=== PATIENT | female | born 1965 | race African-American/Black ===

== ENCOUNTER → 2016-11-23 | Outpatient (CLI) | payer BC ==
[~2016-11-23] MED LIST: BUSP15TA PO; CALC-53 PO; HYDR12.53 PO; IOHEXOL 240 MG/ML 50ML VIAL. PO ONE; IOHEXOL 300 MG/ML 100ML VIAL. IV ONE; OMEP40CA5 PO; SUMA50TA4 PO
--- NOTE | 2016-11-23 12:45 | KCIC ---
Examination: CT of the abdomen pelvis with IV and oral contrast HISTORY History of abnormal bleeding, post partial hysterectomy. COMPARISON None available. TECHNIQUE Axial CT images of the abdomen pelvis were performed with IV contrast. Coronal sagittal reformats were performed. Exposure: One or more of the following dose reduction technique were utilized for this examination: 1. Automated exposure control. 2.Adjustment of MA and /or KV according to patient size. 3. Use of iterative reconstruction technique. Findings: The visualized right lung base grossly appears unremarkable. There is a 3 millimeter pulmonary nodule identified in the left lung base. No evidence of free air identified abdomen. The visualized liver, spleen, adrenals grossly appears unremarkable. The bilateral kidneys enhance symmetrically. Tiny cystic structure identified in the left kidney measuring 5.5 millimeters probably a cyst. The gallbladder is mildly distended. The stomach is minimally distended. The small bowel is nondilated. The visualized appendix grossly appears unremarkable. Feces and gas noted in the colon. Mild fat stranding identified in the pelvis about the vaginal region likely postsurgical. Small amount of free fluid identified in the pelvis. The urinary bladder is mildly distended. No evidence of active bony destructive lesion. IMPRESSION 1. Mild fat stranding identified in the pelvis about the vaginal region likely postsurgical changes with small amount of free fluid identified in the pelvis. Ultrasound followup may be useful for better evaluation of the pelvis. 2. 3 millimeter pulmonary nodule in the left lobe of the lung appears similar to prior exam. Electronically signed by: Avinash Mckeon (Nov 23, 2016 12:44:24)
== END | disposition home or self-care (01) ==
LOC: KCIC CT 09:29
PROVIDERS: ATTEND Obstetrics & Gynecology
DX: R79.1 Abnormal coagulation profile (principal); Z90.710 Acquired absence of both cervix and uterus
CPT/HCPCS: 74177; Q9966; Q9967

== ENCOUNTER → 2017-08-17 | Day surgery (SDC) | payer BC ==
[~2017-08-17] MED LIST changes: -IOHEXOL 240 MG/ML 50ML VIAL. PO ONE; -IOHEXOL 300 MG/ML 100ML VIAL. IV ONE; +IV RINGERS,LACTATED 1000ML 1,000 ML IV SCH; +LIDOCAINE 1% PF 2 ML VIAL. ID PRN; +LIDOCAINE 2% PF Vial for OR 5 ML VIAL. ONE; +MIDAZOLAM HCL/PF 2 MG/2 ML VIAL. IV PRN; +PROPOFOL 20 ML IV ONE; +fentaNYL PF VIAL 100 MCG/2 ML VIAL IV PRN
[2017-08-17 08:07] VITALS: BP 131/80
--- NOTE | 2017-08-18 00:21 | CONS ---
DATE OF CONSULTATION: 08/17/2017 REFERRING PHYSICIAN: ERICA Cornejo HISTORY OF PRESENT ILLNESS: This is a 51-year-old female with past medical history significant for hypertension, gastroesophageal reflux disease, seen for a screening colon. Bowel habits are regular without diarrhea or constipation. FAMILY HISTORY: Negative for colon cancer. Weight and appetite are stable. There has been no diarrhea or constipation. She has not undergone previous studies. She is without additional complaints. PAST MEDICAL HISTORY: Anxiety, hypertension. ALLERGIES: SULFA, ERYTHROMYCIN. MEDICATIONS: Include BuSpar, calcium, hydrochlorothiazide, omeprazole and sumatriptan. FAMILY HISTORY: Father had pancreatic cancer. SOCIAL HISTORY: She is a social drinker. Nonsmoker. PAST SURGICAL HISTORY: Status post hysterectomy. REVIEW OF SYSTEMS: Per records. PHYSICAL EXAMINATION: GENERAL: Reveals a well-nourished, well-developed -[place] female. VITAL SIGNS: Temperature is 98.5, pulse 90, respirations 20. HEENT: Normocephalic and atraumatic. Pupils and extraocular muscles not tested. Sclerae anicteric. NECK: Supple. LUNGS: Clear. CARDIOVASCULAR: Reveals S1, S2 without S3, S4 or appreciable murmur. ABDOMEN: Reveals soft abdomen, normal bowel sounds without appreciable splenomegaly. EXTREMITIES: Reveals no cyanosis, clubbing or edema. IMPRESSION: Colorectal screening is warranted at this time. Risks of procedure including risk of perforation have been previously discussed with the patient who is willing to procedure. FELICIANO ALFONSO MD DR: ELVIRA/tirso JOB#: [id number] / [id number]
== END | disposition home or self-care (01) ==
LOC: SURG 06:05
PROVIDERS: ATTEND Internal Medicine Gastroenterology
DX: Z12.11 Encounter for screening for malignant neoplasm of colon (principal); K64.0 First degree hemorrhoids; I10 Essential (primary) hypertension; Z88.6 Allergy status to analgesic agent; Z88.1 Allergy status to other antibiotic agents; Z88.2 Allergy status to sulfonamides; Z90.710 Acquired absence of both cervix and uterus
CPT/HCPCS: 45378; J2704; J2001